=== PATIENT | male | born 1965 | race Caucasian/White ===

== ENCOUNTER 2018-05-02 22:19 | Emergency (ER) | payer MEDICARE, OTHER ==
[~2018-05-02 22:19] MED LIST: CARI350T PO; CITA-278 PO; CYAN-19 PO; MODA200T25 PO; NORCO10T PO; OMEG-86 PO; ZOLP5TAB8 PO
== END 2018-05-02 23:05 | disposition left against medical advice (07) ==
LOC: ER 22:20
DX: N20.0 Calculus of kidney (principal); Z53.21 Procedure and treatment not carried out due to patient leaving prior to being seen by health care provider

== ENCOUNTER 2023-05-02 10:04 | Emergency (ER) | payer MEDICARE, MEDICAID ==
[~2023-05-02] VITALS: Ht 182.9 cm; Wt 102.2 kg
[~2023-05-02 10:04] MED LIST changes: -CITA-278 PO; +CITA20TA28 PO; -CYAN-19 PO; +CYAN100019 PO
[2023-05-02 10:19] VITALS: TEMP 97.3
[2023-05-02 10:45] LABS: BASOPHILS % (AUTO) 0.2 % (0-1); EOSINOPHILS % (AUTO) 0.4 % (0-6); HEMATOCRIT 40.7 % (42.0-52.0); HEMOGLOBIN 13.1 g/dl (14.0-17.9); LYMPHOCYTES # (AUTO) 0.7 X10'3 (1.1-4.8); LYMPHOCYTES % (AUTO) 8.5 % (21-51); MEAN CORPUSCULAR HEMOGLOBIN 23.5 PG (27.0-31.0); MEAN CORPUSCULAR HGB CONC 32.2 g/dL (33.0-36.5); MEAN CORPUSCULAR VOLUME 72.8 FL (78-98); MEAN PLATELET VOLUME 7.5 FL (7.4-10.4); MONOCYTES # (AUTO) 2.2 X10'3 (0-0.9); MONOCYTES % (AUTO) 26.1 % (2-12); NEUTROPHILS # (AUTO) 5.5 X10'3 (1.8-7.7); NEUTROPHILS % (AUTO) 64.8 % (42-75); PLATELET COUNT 267 X10'3 (140-440); RED BLOOD COUNT 5.59 X10'6 (4.70-6.10); RED CELL DISTRIBUTION WIDTH 20.4 % (11.5-14.5); WHITE BLOOD COUNT 8.5 X10'3 (4.5-11.0)
[2023-05-02 10:55] LABS: ALANINE AMINOTRANSFERASE 30 U/L (12-78); ALBUMIN 2.8 G/DL (3.4-5.0); ALBUMIN/GLOBULIN RATIO 0.7 (1.1-1.5); ALKALINE PHOSPHATASE 115 IU/L (46-116); ANION GAP 12 (8-16); ASPARTATE AMINO TRANSFERASE 37 U/L (10-37); BILIRUBIN,TOTAL 0.5 MG/DL (0.1-1.0); BLOOD UREA NITROGEN 13 MG/DL (7-18); BUN/CREATININE RATIO 9.3 (10.0-20.0); CALCIUM 8.4 MG/DL (8.5-10.1); CHLORIDE 96 MMOL/L (99-107); GLUCOSE 232 MG/DL (70-104); LIPASE 65 U/L (73-393); POTASSIUM 3.7 MMOL/L (3.5-5.1); SODIUM 133 MMOL/L (135-145); eGFR 52 ML/MIN
[2023-05-02] MEDS ORDERED: normal saline 1000ml 1,000 ML IV ONE ×2 (11:00→12:10)
[2023-05-02 11:14] LABS: ANISOCYTOSIS 3+; MICROCYTOSIS 1+; PLATELET ESTIMATE NORMAL; TOTAL CELLS COUNTED 100
[2023-05-02] MEDS ORDERED: LOPE1TAB46 PO ×3 (11:46→14:27)
[2023-05-02] MEDS ORDERED: ondansetron 4mg rapidly disintigrating tab PO STA (12:06)
[2023-05-02] MEDS ORDERED: loperamide 2mg capsule PO ONE (12:10)
[2023-05-02 12:23] VITALS: BP 114/79
[2023-05-02 12:39] LABS: CLARITY,URINE CLEAR (Clear); GLUCOSE, URINE NEGATIVE (Neg); KETONES,URINE TRACE mg/dl (Neg); LEUKOCYTE ESTERASE ,URINE NEGATIVE (Neg); NITRITES, URINE NEGATIVE (Neg); OCCULT BLOOD,URINE TRACE-INTACT (Neg); PH,URINE 6.5 (4.8-8.0); PROTEIN,URINE 100 mg/dl (Neg); UROBILINOGEN,URINE 0.2 E.U/dL (0.2-1.0)
[2023-05-02 12:43] LABS: COLOR,URINE DARK YELLOW (Yellow); UA COLLECTION TYPE VOIDED
[2023-05-02 12:45] LABS: WBC,URINE 0-4 /HPF (0-4)
[2023-05-02 12:46] LABS: BACTERIA,URINE FEW /HPF (Neg); MUCUS STRANDS FEW /LPF (Neg); RBC,URINE 0-2 /HPF (0-2); SQUAMOUS EPITHELIAL CELL,UR FEW /LPF (FEW)
[2023-05-02 12:47] LABS: CELLULAR CAST 0-4 /LPF (NEGATIVE)
[2023-05-02 13:23] VITALS: PULSE 82; RESP 16; O2SAT 96
== END 2023-05-02 14:31 | disposition home or self-care (01) ==
LOC: ER 10:06
DX: R19.7 Diarrhea, unspecified (principal); T50.995A Adverse effect of other drugs, medicaments and biological substances, initial encounter; G89.29 Other chronic pain; F12.90 Cannabis use, unspecified, uncomplicated; Z87.442 Personal history of urinary calculi; Z98.890 Other specified postprocedural states; Z79.899 Other long term (current) drug therapy; Y92.89 Other specified places as the place of occurrence of the external cause
CPT/HCPCS: 36415; 74176; 80053; 81001; 83690; 85007; 85025; 96360; 99284; J7030

== ENCOUNTER → 2024-04-30 | Outpatient (CLI) | payer MEDICARE, MEDICAID ==
[~2024-04-30] MED LIST changes: +LOPE1TAB46 PO
== END | disposition home or self-care (01) ==
LOC: RAD 16:32
PROVIDERS: ATTEND General Practice
DX: R13.10 Dysphagia, unspecified (principal)
CPT/HCPCS: 74230

== ENCOUNTER 2025-08-07 16:54 | Emergency (ER) | payer MEDICARE, MEDICAID ==
[~2025-08-07] VITALS: Ht 182.9 cm; Wt 121.7 kg
[~2025-08-07 16:54] MED LIST changes: +CITA-178 PO; -CITA20TA28 PO; +ZOLP5TAB19 PO; -ZOLP5TAB8 PO
[2025-08-07 17:07] VITALS: BP 121/84; PULSE 96; RESP 16; TEMP 98.6; O2SAT 98
--- NOTE | 2025-08-07 17:10 | Physician Documentation ---
History of Present Illness ~ Stated Complaint: SUTURE REMOVAL Time Seen by MD: 17:08 Primary Medical Doctor: Dr. Qureshi; [facility] This is a 59-year-old male who presents for removal of sutures to the left forehead that replaced one week ago. The patient denies any chills or fever, chest pain or shortness of breath, or any other symptoms of concern. Medication Reconciliation Allergies: Coded Allergies: No Known Allergies (Unverified , 07/31/25) Scheduled Citalopram Hydrobromide* (Celexa*), 40 MG PO HS, (Reported) Cyanocobalamin (Vitamin B-12) (Vitamin B-12), 1 TABLET PO DAILY, (Reported) Loperamide Hcl/Simethicone (Imodium Ms Relief Caplet), 1 EACH PO BID Modafinil (Provigil), 200 MG PO BID, (Reported) [place]-3S/Dha/Epa/Fish Oil/D3 (Fish Oil + D3 Softgel), 1 TAB PO HS, (Reported) Scheduled PRN Carisoprodol* (Soma*), 350 MG PO TID PRN for pain, (Reported) Hydrocodone Bit/Acetaminophen 10/325 MG* ([place]enn[place] 10/325 MG*), 2 TAB PO Q4H PRN for pain, (Reported) Zolpidem Tartrate* (Ambien*), 10 MG PO HS PRN for sleep, (Reported) Past Medical History Past Medical History: Kidney Stones, Chronic Back Pain Past Surgical History: gastric bypass, other Alcohol Use: None Drug Use: marijuana Lives with: Spouse Lives In: Home Occupation: employed Review of Systems ROS As stated above in the HPI, otherwise all systems are reviewed and negative. Physical Exam Physical Exam General: Alert, no apparent distress. HEENT: PERRL, EOMI, no injection, moist mucous membranes. Neck: Full range of motion. Respiratory: Lungs clear, no respiratory distress. Chest: No accessory muscle use. Cardiovascular: Regular rate and rhythm, no murmurs. Gastrointestinal: Soft, nontender, nondistended. Bowels sounds present. Extremities: Normal range of motion, no deformity. Neurologic: Oriented x4. Psychiatric: Normal mood and affect. Skin: Normal color, warm and dry. No edema, no ecchymosis.Left forehead sutures intact without signs of infection. Progress Results/Orders Results/Orders Orders - NATHANIEL BOONE NP * Miscellaneous Nursing Orders (08/07/25 17:08) Medical Decision Making Additional information obtaine: old records Findings Here approx one week ago for scalp laceration. Differential Dx:Considerations: Include: Abscess, AIDS/HIV, Anthrax (cutaneous), Atopic dermatitis, Candidiasis, Contact dermatitis, Drug reaction, Erythema multiforme, Erysipelas, Gangrene, Herpes zoster, Herpes simplex, Hidradenitis suppurativa, Impetigo, Intertrigo, Lymes disease, Molluscum contagiosum, Osteomyelitis, Pediculosis, Pityriasis rosea, Psoriaisis, RMSF, Rosacea Departure Time of Disposition: 17:09 Disposition: 01 HOME / SELF CARE / HOMELESS Impression: Primary Impression: Visit for suture removal Condition: Stable Discharge Instructions: Suture Removal, Care After Additional Instructions: Sutures were removed. Follow up with the primary care, return for any emergent issues. Referrals: NO PRIMARY CARE PROVIDER (PCP) Education Educated: Patient Educated regarding: diagnosis, treatment, prognosis Signature Scribe Signature: x Attestation: The note accurately reflects work and decisions made by me.Nathaniel Boone - YAQUELIN 08/07/25 17:10 NATHANIEL BOONE NP Aug 07, 2025 17:10
== END 2025-08-07 18:02 | disposition home or self-care (01) ==
LOC: ER 16:55
DX: S01.81XD Laceration without foreign body of other part of head, subsequent encounter (principal); G89.29 Other chronic pain; F12.90 Cannabis use, unspecified, uncomplicated; Z87.442 Personal history of urinary calculi; Z79.899 Other long term (current) drug therapy; X58.XXXD Exposure to other specified factors, subsequent encounter
CPT/HCPCS: 99282